=== PATIENT | male | born 1955 | race Caucasian/White ===

== ENCOUNTER 2016-09-24 08:36 | Day surgery (SDC) | payer OTHER ==
[~2016-09-24] VITALS: Ht 175.3 cm; Wt 85.8 kg
[2016-09-24] VITALS (10 sets, daily range): BP systolic 119–147; BP diastolic 63–89; PULSE 60–82; RESP 13–17; Ht 175.3 cm; Wt 85.8 kg
[~2016-09-24 08:36] MED LIST: AMLO-218 PO; BUPIVACAINE 0.25% (MPF) 30 ML INJ INJ ONE; CEFAZOLIN 2 GM/50 ML (PMX) 50 ML IVPB ONE; CLON-379 PO; HYDR-3672 PO; LISI-523 PO; SENN-36 PO; SOD CHLORIDE 0.9% 1,000 ML IV ONE; TAMS-14 PO
[2016-09-24] MEDS ORDERED: AMLO5TAB4 PO (09:15)
[2016-09-24] MEDS ORDERED: ASPI81TA3 PO (09:17)
[2016-09-24] MEDS ORDERED: FENTAnyl 50 MCG/ML VIAL ONE (10:21)
[2016-09-24] MEDS ORDERED: PROPOFOL 20 ML ONE (10:21)
[2016-09-24] MEDS ORDERED: MIDAZOLAM 1 MG/ML 2 ML INJ ONE (10:21)
[2016-09-24] MEDS ORDERED: ROCURONIUM 50 MG INJ ONE (10:22)
[2016-09-24] MEDS ORDERED: LIDOCAINE 1% (MDV) 20 ML INJ ONE (10:22)
[2016-09-24] MEDS ORDERED: ROPIVACAINE 0.2% 20 ML VIAL ONE (10:37)
[2016-09-24] MEDS ORDERED: POLYMYXIN/BACITRACIN 1L IRRIG ONE (10:55)
[2016-09-24] MEDS ORDERED: DEXAMETHASONE 4 MG/ML 1 ML INJ ONE (11:13)
[2016-09-24] MEDS ORDERED: FAMOTIDINE 20 MG INJ ONE (11:13)
[2016-09-24] MEDS ORDERED: ONDANSETRON 4 MG INJ ONE (11:13)
[2016-09-24] MEDS ORDERED: CEFAZOLIN 1 GM INJ ONE (11:13)
[2016-09-24] MEDS ORDERED: BUPIVACAINE 0.5% (SDV) 30 ML INJ ONE (11:32)
[2016-09-24] MEDS ORDERED: HYDROmorphONE 2 MG/ML SYG ONE (12:35)
[2016-09-24] MEDS ORDERED: GLYCOPYRROLATE 0.4 MG INJ ONE (12:53)
[2016-09-24] MEDS ORDERED: NEOSTIGMINE 3 MG/3 ML SYRINGE ONE (12:53)
[2016-09-24] MEDS ORDERED: PROCHLORPERAZINE 10 MG INJ IV PRN (13:00)
[2016-09-24] MEDS ORDERED: morphine 2 MG INJ IV PRN (13:00)
[2016-09-24] MEDS ORDERED: DIPHENHYDRAMINE 50 MG INJ IV PRN (13:00)
[2016-09-24] MEDS ORDERED: MEPERIDINE 25 MG INJ IV PRN (13:00)
[2016-09-24] MEDS ORDERED: OXYCODONE/ACETAMINOPHEN (5/325) TAB PO PRN ×2 (13:00)
[2016-09-24] MEDS ORDERED: KETOROLAC 30 MG INJ IV PRN (13:00)
[2016-09-24] MEDS ORDERED: HYDROmorphONE (0.2 MG/ML) 10ML SYG IV PRN ×2 (13:00)
[2016-09-24] MEDS ORDERED: hydrALAzine 20 MG INJ IV PRN (13:00)
[2016-09-24] MEDS ORDERED: IBUPROFEN 600 MG TAB PO PRN (13:00)
[2016-09-24] MEDS ORDERED: ONDANSETRON 4 MG INJ IV PRN (13:00)
--- NOTE | 2016-09-24 14:40 | OPR ---
Date/Time of Note Date/Time of Note DATE: 09/24/16 TIME: 14:29 Operative Report Procedure Date: September 24, 2016 Preoperative Diagnosis Recurrent left inguinal hernia without obstruction or gangrene Postoperative Diagnosis Recurrent left inguinal hernia without obstruction or gangrene Operation Performed 1. Repair of recurrent left inguinal hernia with mesh 2. Implantation of extracellular biological matrix Surgeon: TOO REES MD Anesthesia: general Anesthesiologist: LEVI PAN DO Estimated Blood Loss: minimal Specimens Hernia sac Complications: None Pt Condition Post Procedure: stable Disposition: PACU Indications The patient is a 60-year-old Greek male with a history of prior left inguinal hernia repair several years ago who presented to the office with a large recurrence of his left inguinal hernia with contents extending to the scrotum. He also reported pain and discomfort. Patient had pre-existing left testicular atrophy on physical exam. He was scheduled for elective repair of his recurrent left inguinal hernia with mesh. All risks and benefits of the procedure including, but not limited to: Wound infection, excessive bleeding, postoperative seroma/hematoma formation, possible need for orchiectomy, injury to neurovascular structures including the ilioinguinal iliohypogastric nerves resulting in sensory deficits which may be temporary versus permanent, hernia recurrence, chronic groin pain, etc. were all explained to the patient in full detail. He fully understood and wished to proceed with the procedure. Informed consent was obtained. Operative\Procedure Findings Large indirect recurrent inguinal hernia containing small bowel. Severe fibrosis and scarring from prior surgery. Procedure Description The patient was brought to the operating room and placed supine on the operating table. Bilateral sequential compression devices were placed on both lower extremities. A dose of broad-spectrum perioperative intravenous antibiotics was given. After the induction of smooth general anesthesia a Valenzuela catheter was placed under sterile conditions and the patient's lower abdomen, groins, penis and scrotum were prepped and draped in a standard surgical fashion. After performance of the surgical timeout the patient's prior left inguinal incision which extended from the pubic tubercle to the anterior superior iliac spine was incised using a 10 blade scalpel. 0.25% Marcaine plain local anesthesia was given prior to incision. Incision was taken down through the skin and into the subcutaneous tissues using Bovie electrocautery. There was scar tissue encountered in the subcutaneous tissues. Dissection was continued. Flaquita's fascia external oblique aponeurosis and conjoined tendon area were all fused together. This area was carefully and atraumatically opened. The spermatic cord and a large adherent indirect hernia sac were identified. Spermatic cord was scarred down to the floor of the inguinal canal. Using much tedious dissection the spermatic cord was able to be freed and isolated with a [place] drain. What appeared to be the ilioinguinal nerve was identified in a somewhat a variant location secondary to scar tissue near the underside of the spermatic cord. Was isolated within the [place] drain and shielded during the procedure. The iliohypogastric nerve was also identified and developed in deep scar tissue near the floor of the inguinal canal. It too was preserved. The large hernia sac was then dissected off of what remained of the spermatic cord. The vas deferens and the cord structures were identified and preserved throughout the entirety of the procedure. Hernia sac was dissected down to its neck. The sac was then opened. Small bowel was identified within the sac. The bowel was easily reduced back into the intra-abdominal cavity. Ligation of the sac was done using a 2-0 Vicryl suture ligature near the neck of the hernia. A large indirect hernia defect was identified. The indirect defect was repaired using a large Ethicon ultra pro plug. It was sutured in place using interrupted 3-0 Vicryl sutures. The floor of the inguinal canal which was weakened and scarred was repaired using the onlay patch of the Ethicon ultra Pro mesh. It was secured in place using a running 2-0 Novafil suture. Both the onlay mesh and the plug were soaked in antibiotic irrigation prior to placement into the field. With the repair complete was examined and noted to be tension-free and hemostatic. The wound cavity was irrigated with antibiotic containing irrigation. To help in tissue regeneration and strength in the hernia repair as well as minimize the risk of bacterial contamination approximately 500 mg of ACell extracellular biological matrix powder was spread on top of the mesh. Once this was complete the spermatic cord was placed back into its anatomical position. The overlying external oblique fascia was reapproximated using running 3-0 Vicryl suture. Flaquita's fascia was reapproximated using running 3- 0 Vicryl suture. Further local anesthesia was applied on the skin in the incision site. The skin was reapproximated using skin koffi. Incision was clean and sterile dressings were applied. Both testicles were palpated and noted to be in their anatomical positions at the end of the case. The Valenzuela catheter was removed at the end of the case. The patient was awoken from anesthesia and transferred to the recovery room in stable condition. All counts were correct at the end of the case 2 TOO REES MD September 24, 2016 14:40
== END 2016-09-24 15:00 | disposition home or self-care (01) ==
LOC: SDS 08:36
PROVIDERS: ATTEND Surgery
DX: K40.91 Unilateral inguinal hernia, without obstruction or gangrene, recurrent (principal); J44.9 Chronic obstructive pulmonary disease, unspecified; I10 Essential (primary) hypertension; I69.351 Hemiplegia and hemiparesis following cerebral infarction affecting right dominant side
CPT/HCPCS: 49520; 88304; C1781; J0690; J1100; J1170; J1885; J2250; J2405; J2710; J2795; J3010; Q4118; Z7512; Z7610